=== PATIENT | female | born 1970 | race Caucasian/White ===

== ENCOUNTER 2016-05-09 08:45 | Observation (INO) | payer BC, OTHER ==
[~2016-05-09] VITALS: Ht 170.2 cm; Wt 84.0 kg
[~2016-05-09 08:45] MED LIST: CLOP1TAB15 PO; LEVO1TAB35 PO; METO25TA3 PO; NITR-5 PO; NITR0.4S UT; PRT/20 PO; ROSU40TA PO
[2016-05-09] MEDS ORDERED: NITROGLYCERIN OINT 2% 1GM PACKET EXT ONE (09:15)
[2016-05-09 09:16] LABS: HEMATOCRIT 43.7 % (37-47); MEAN CELL VOLUME 95.8 fL (80-100); MEAN CORPUSCULAR HEMOGLOBIN 32.7 pg (25-34); MEAN CORPUSCULAR HGB CONC 34.1 g/dl (32-36); MEAN PLATELET VOLUME 10.5 fL (7.4-10.4); PLATELET COUNT 380 K/uL (130-400); RED BLOOD COUNT 4.56 M/uL (4.2-5.4); WHITE BLOOD COUNT 10.06 K/uL (4.8-10.8)
[2016-05-09 09:25] LABS: INR 0.9 (0.9-1.1); PARTIAL THROMBOPLASTIN RATIO 1.1; PROTHROMBIN TIME (PATIENT) 10.1 SECONDS (9.0-12.0)
--- NOTE | 2016-05-09 09:30 | DIAGNOSTIC IMAGING REPORT ---
SINGLE VIEW CHEST CLINICAL HISTORY: Atypical chest pain. FINDINGS: An AP, portable, upright chest radiograph is compared to study dated 02/02/2016. The examination is degraded by portable technique and patient rotation. The patient is status post midline sternotomy. The heart is mildly enlarged and there is atherosclerotic calcification of the thoracic aorta. Emphysema and chronic interstitial thickening is similar to previous. Biapical scarring is noted, right greater than left. No airspace consolidation, large pleural effusion, or pneumothorax is seen. The skeletal structures are osteopenic. There are healed right-sided rib fractures. IMPRESSION: Mild cardiomegaly, emphysema, and chronic parenchymal changes as above. There is no acute cardiopulmonary abnormality. Electronically signed by: Bill Lombardo M.D. 05/09/2016 9:29 AM Dictated Date/Time: 05/09/2016 9:27 AM
[2016-05-09 09:32] LABS: CALCIUM 8.9 mg/dl (8.5-10.1); CREATININE 0.82 mg/dl (0.60-1.20); POTASSIUM 4.2 mmol/L (3.5-5.1)
[2016-05-09] MEDS ORDERED: ASPI81TA28 PO (09:33)
[2016-05-09 09:34] LABS: BASO ABS # 0.09 K/uL (0-0.2); BASOPHIL % 0.9 %; COMPLETE YES; EOSINOPHIL % 0.9 %; LYMPH ABS # 2.72 K/uL (1.2-3.4); MYELOCYTE % 0.9 %
--- NOTE | 2016-05-09 12:01 | EMERGENCY ROOM VISIT NOTE ---
History Report prepared by Minna: Ernesto Renee Under the Supervision of: Dr. Efrain Alcala M.D. First contact with patient: 09:00 Chief Complaint: CHEST PAIN Stated Complaint: CHEST PAINS X 2 DAYS History of Present Illness The patient is a 45 year old female who presents to the Emergency Room with complaints of intermittent chest pain that began yesterday, one day prior to arrival. The patient describes her pain as a "pressure" and states that it is localized in her left chest and under her left breast. She is currently experiencing the pain under the left breast. Her chest pain is worsened with exertion, and presents with associated shortness of breath. When the patient's symptoms began yesterday she became dizzy and nauseated so she took one nitroglycerin. This helped slightly, and she additionally took 3 Aspirin tablets and laid down. This improved her pain, but she states she could still feel her "heart beating out of her chest" and she was also experiencing chills. The patient denies becoming diaphoretic at any point yesterday or today. The patient is a current smoker and has a history of stent placement in 2008. Source of History: patient Onset: One day MANAGER CHANGE Position: chest (left) Quality: pressure Modifying Factors (Worsening): exertion Modifying Factors (Relieving): other (Nitro and Aspirin) Associated Symptoms: + SOB, + chills, + nausea, No diaphoresis Review of Systems See HPI for pertinent positives & negatives. A total of 10 systems reviewed and were otherwise negative. Past Medical & Surgical Medical Problems: (1) Asthma (2) Bronchitis (3) Heart disease Surgical Problems: (1) Hx of CABG Family History No pertinent family history Social History Smoking Status: Current Every Day Smoker Marital Status: Housing Status: lives with family Current/Historical Medications Scheduled Aspirin (Aspirin Ec), 81 MG PO DAILY Clopidogrel (Plavix), 75 MG PO DAILY Metoprolol Succ (Toprol Xl) (Toprol-Xl), 25 MG PO DAILY Pantoprazole (Protonix), 20 MG PO DAILY Rosuvastatin Calcium (Crestor), 40 MG PO DAILY Scheduled PRN Nitroglycerin (Nitrostat), 0.4 MG UT UD PRN for Chest Pain Allergies Coded Allergies: Penicillins (Verified Allergy, Unknown, HIVES, 05/09/16) Physical Exam Vital Signs Date Time Temp Pulse Resp B/P Pulse Ox O2 Delivery O2 Flow Rate FiO2 2/14/17 10:50 59 18 152/84 100 Room Air 05/09/16 09:51 56 17 139/85 97 Room Air 05/09/16 09:21 64 05/09/16 09:20 99 Room Air 05/09/16 09:18 99 Room Air 05/09/16 08:49 36.9 66 20 162/84 99 Room Air Physical Exam Constitutional: Vital signs reviewed. Eyes: Pupils are equal round reactive to light. Conjunctiva are noninjected. ENT: Pharynx is clear without erythema or exudate. Mucous membranes are moist. Neck supple without meningeal signs. Respiratory: Clear to auscultation bilaterally. Breath sounds are equal bilaterally. Cardiovascular: Regular rate and rhythm. No rubs or gallops. GI: Soft, nondistended and nontender. Bowel sounds are present. Musculoskeletal: No peripheral edema. No lower extremity tenderness. Integumentary: No cyanosis. Neurological: The patient is awake and alert. No focal deficits. Psychiatric: Normal affect. Medical Decision & Procedures ER Provider Diagnostic Interpretation: Other radiology results as stated below per my review and the radiologist's interpretation: SINGLE VIEW CHEST CLINICAL HISTORY: Atypical chest pain. FINDINGS: An AP, portable, upright chest radiograph is compared to study dated 02/02/2016. The examination is degraded by portable technique and patient rotation. The patient is status post midline sternotomy. The heart is mildly enlarged and there is atherosclerotic calcification of the thoracic aorta. Emphysema and chronic interstitial thickening is similar to previous. Biapical scarring is noted, right greater than left. No airspace consolidation, large pleural effusion, or pneumothorax is seen. The skeletal structures are osteopenic. There are healed right-sided rib fractures. IMPRESSION: Mild cardiomegaly, emphysema, and chronic parenchymal changes as above. There is no acute cardiopulmonary abnormality. Electronically signed by: Bill Lombardo M.D. 05/09/2016 9:29 AM Dictated Date/Time: 05/09/2016 9:27 AM Laboratory Results 05/09/16 09:05 Red Blood Count 4.56, Mean Corpuscular Volume 95.8, Mean Corpuscular Hemoglobin 32.7, Mean Corpuscular Hemoglobin Concent 34.1, Mean Platelet Volume 10.5 05/09/16 09:05 Test 05/09/16 09:05 05/09/16 09:18 White Blood Count 10.06 K/uL (4.8-10.8) Red Blood Count 4.56 M/uL (4.2-5.4) Hemoglobin 14.9 g/dL (12.0-16.0) Hematocrit 43.7 % (37-47) Mean Corpuscular Volume 95.8 fL (80-100) Mean Corpuscular Hemoglobin 32.7 pg (25-34) Mean Corpuscular Hemoglobin Concent 34.1 g/dl (32-36) Platelet Count 380 K/uL (130-400) Mean Platelet Volume 10.5 fL (7.4-10.4) RDW Standard Deviation 45.6 fL (36.4-46.3) RDW Coefficient of Variation 13.1 % (11.5-14.5) Neutrophils % (Manual) 64.0 % Lymphocytes % (Manual) 27.0 % Monocytes % (Manual) 6.3 % Eosinophils % (Manual) 0.9 % Basophils % (Manual) 0.9 % Myelocytes % 0.9 % Neutrophils # (Manual) 6.44 K/uL (1.4-6.5) Total Absolute Neutrophils 6.44 K/uL (1.4-6.5) Lymphocytes # (Manual) 2.72 K/uL (1.2-3.4) Total Absolute Lymphocytes 2.72 K/uL (1.2-3.4) Monocytes # (Manual) 0.63 K/uL (0.11-0.59) Eosinophils # (Manual) 0.09 K/uL (0-0.5) Basophils # (Manual) 0.09 K/uL (0-0.2) Myelocytes # 0.09 K/uL (0-0) Red Blood Cell Morphology Unremarkable Prothrombin Time 10.1 SECONDS (9.0-12.0) Prothromb Time International Ratio 0.9 (0.9-1.1) Activated Partial Thromboplast Time 27.6 SECONDS (21.0-31.0) Partial Thromboplastin Ratio 1.1 Anion Gap 9.0 mmol/L (3-11) Est Creatinine Clear Calc Drug Dose 96.5 ml/min Estimated GFR () 100.2 Estimated GFR (Non- 86.4 BUN/Creatinine Ratio 15.0 (10-20) Calcium Level 8.9 mg/dl (8.5-10.1) Bedside Troponin I 0.020 ng/ml (0-0.045) Laboratory results as reviewed by me. ECG Indication: chest pain, SOB/dyspnea Rate (beats per minute): 66 Rhythm: sinus rhythm Findings: PVC, other (Q-waves in V1 and V2) ED Course 0901: The patient was evaluated in room B2B. A complete history and physical exam was performed. 0915: Ordered Nitroglycerin 0.5 inch EXT. 0918: I checked on the patient at this time. She is refusing the nitroglycerin because it gives her a bad headache. She claims her chest pain is completely gone at this time. 0937: I put out a page for the [facility] at this time. 0943: I discussed the case with Dr.Landry- [facility] Hospitalist at this time, she will evaluate the patient for further treatment. 1001: I reevaluated the patient at this time, we are waiting for the hospitalist to evaluate. 1029: The wrong hospitalist was paged initially. The patient will be observed by the [facility] Hospitalist. I discussed the case with Dr.Lin Torsten SHELLEY Hospitalist at this time, she will evaluate the patient for further treatment. Medical Decision This is a 45-year-old female who presents with chest pain. Differential diagnosis includes unstable angina, [place], GERD, pleurisy, pericarditis. I did perform a limited focused review of portions of the patient's old chart on the electronic medical record. The patient has had no recent pertinent visits to this hospital. I did evaluate the patient as noted above. The patient has a prior history of cardiac stent. She currently smokes as well. She is presenting with exertional chest pain which she describes as a pressure. Initially I ordered nitroglycerin paste but she refused it. On reassessment she states that her chest pain is gone. IV access was established. The patient was placed on a continuous playground monitor. I did order and personally review the patient's 12- lead EKG and chest x-ray as described above. She has nonspecific findings on her twelve-lead EKG. I did order and review the patient's blood work as noted in the electronic medical record. Troponin is negative. I did discuss the test results with the patient. I did recommend hospitalization for repeat cardiac enzymes and further evaluation. I did discuss the case with the hospitalist and human services case manager. Consults Time Called: 0928 Consulting Physician: Dr. Margaret SHELLEY Hospitalist Returned Call: [phone] I discussed the case with Dr.Lin Torsten SHELLEY Hospitalist at this time, she will evaluate the patient for further treatment. Impression Primary Impression: Left sided chest pain Scribe Attestation The scribe's documentation has been prepared under my direct and personally reviewed by me in its entirety. I confirm that the note above accurately reflects all work, treatment, procedures, and medical decision making performed by me. Departure Information Dispostion Being Evaluated By Hospitalist Referrals Natalie Feliz C.R.N.P. (PCP) Patient Instructions My [facility]
[2016-05-09] MEDS ORDERED: IV FLUIDS COMPLETED PRN (12:15)
[2016-05-09] MEDS ORDERED: ACETAMINOPHEN 325 MG TAB PO PRN (12:30)
[2016-05-09] MEDS ORDERED: NITROGLYCERIN 0.4 MG SL PER TAB CHARGE SL PRN (12:30)
--- NOTE | 2016-05-09 12:31 | History and Physical ---
History & Physical Date & Time of Service: May 09, 2016 at 12:06 Chief Complaint: Chest Pains X 2 Days Primary Care Physician: Natalie Feliz C.R.N.P. History of Present Illness Source: patient Ms Hicks is a 45 yo F with significant cardiac hx including an acute ND at the age of 38 requiring a CABG for 3 vessels in 09/2008, h/o of CHAO placement same year 02/2009 in the SVG to PDA, active heavy smoker, HTN, and emphysema who presents with a left-sided chest pain. Chest pain is described as heaviness and pressure-like when it started radiates to left axillary area and underneath her left breast, 10/10 yesterday, sudden, occurred while walking but lasted only a few seconds. Chest pain became intermittent and relieved with nitro and some rest and further alleviated by 3 tabs of ASA. Chest pain is now "crampy" in nature, intermittent, 3-4/10 and now in the left axillary line lateral to her breast. Yesterday, it was associated with lightheaded and nausea, but those have not recurred today. She reports her initial ND presented atypically, presenting as reflux-like, which prompted her ER visit today. Her last cardiac stress test was 2 years ago in [place], [place] and reportedly normal. No h/o CHF and no recent echo done. She does follow with Dr. Harrington. She otherwise does not have SOB, no n/v at present, no abdominal pain or urinary symptoms reported. Past Medical/Surgical History PMH: - CAD s/p CABG in 09/2008, s/p DE stent to SVG to PDA in 02/2009 - HTN - active smoker - asthma - emphysema PSH - CABG - b/l bunionectomies FHx - Mother: heart disease , CABG, lung ca, smoker - Father: heart disease with CABG - Maternal GM: ND, lung ca Allergies: PCN (hives) Family History No pertinent family history Social History Smoking Status: Current Every Day Smoker Alcohol Use: occasionally Drug Use: cocaine (quit 2006) Marital Status: Occupational Status: employed Allergies Coded Allergies: Penicillins (Verified Allergy, Unknown, HIVES, 05/09/16) Home Medications Scheduled Aspirin (Aspirin Ec), 81 MG PO DAILY Clopidogrel (Plavix), 75 MG PO DAILY Metoprolol Succ (Toprol Xl) (Toprol-Xl), 25 MG PO DAILY Pantoprazole (Protonix), 20 MG PO DAILY Rosuvastatin Calcium (Crestor), 40 MG PO DAILY Scheduled PRN Nitroglycerin (Nitrostat), 0.4 MG UT UD PRN for Chest Pain Review of Systems ROS as per HPI. Rest of ROS negative. Physical Exam Vital Signs Date Time Temp Pulse Resp B/P Pulse Ox O2 Delivery O2 Flow Rate FiO2 05/09/16 10:50 59 18 152/84 100 Room Air 05/09/16 09:51 56 17 139/85 97 Room Air 05/09/16 09:21 64 05/09/16 09:20 99 Room Air 05/09/16 09:18 99 Room Air 05/09/16 08:49 36.9 66 20 162/84 99 Room Air NAD, AOx3, appropriate, coherent, fluent speech EOMI, PERRL, anicteric sclerae S1 S2 RRR, no murmurs appreciated CTAB no w/r/r/ Abd soft, nt/nd +BS no CVA tenderness no LE edema CN 2-12 grossly intact without focal deficits or facial drooping Diagnostics Laboratory Results Results Past 24 Hours Test 05/09/16 09:05 05/09/16 09:18 Range/Units White Blood Count 10.06 4.8-10.8 K/uL Red Blood Count 4.56 4.2-5.4 M/uL Hemoglobin 14.9 12.0-16.0 g/dL Hematocrit 43.7 37-47 % Mean Corpuscular Volume 95.8 80-100 fL Mean Corpuscular Hemoglobin 32.7 25-34 pg Mean Corpuscular Hemoglobin Concent 34.1 32-36 g/dl Platelet Count 380 130-400 K/uL Mean Platelet Volume 10.5 7.4-10.4 fL RDW Standard Deviation 45.6 36.4-46.3 fL RDW Coefficient of Variation 13.1 11.5-14.5 % Neutrophils % (Manual) 64.0 % Lymphocytes % (Manual) 27.0 % Monocytes % (Manual) 6.3 % Eosinophils % (Manual) 0.9 % Basophils % (Manual) 0.9 % Myelocytes % 0.9 % Neutrophils # (Manual) 6.44 1.4-6.5 K/uL Total Absolute Neutrophils 6.44 1.4-6.5 K/uL Lymphocytes # (Manual) 2.72 1.2-3.4 K/uL Total Absolute Lymphocytes 2.72 1.2-3.4 K/uL Monocytes # (Manual) 0.63 0.11-0.59 K/uL Eosinophils # (Manual) 0.09 0-0.5 K/uL Basophils # (Manual) 0.09 0-0.2 K/uL Myelocytes # 0.09 0-0 K/uL Red Blood Cell Morphology Unremarkable Prothrombin Time 10.1 9.0-12.0 SECONDS Prothromb Time International Ratio 0.9 0.9-1.1 Activated Partial Thromboplast Time 27.6 21.0-31.0 SECONDS Partial Thromboplastin Ratio 1.1 Sodium Level 142 136-145 mmol/L Potassium Level 4.2 3.5-5.1 mmol/L Chloride Level 108 98-107 mmol/L Carbon Dioxide Level 25 21-32 mmol/L Anion Gap 9.0 3-11 mmol/L Blood Urea Nitrogen 12 7-18 mg/dl Creatinine 0.82 0.60-1.20 mg/dl Est Creatinine Clear Calc Drug Dose 96.5 ml/min Estimated GFR () 100.2 Estimated GFR (Non- 86.4 BUN/Creatinine Ratio 15.0 10-20 Random Glucose 81 70-99 mg/dl Calcium Level 8.9 8.5-10.1 mg/dl Bedside Troponin I 0.020 0-0.045 ng/ml Diagnostic Radiology SINGLE VIEW CHEST CLINICAL HISTORY: Atypical chest pain. FINDINGS: An AP, portable, upright chest radiograph is compared to study dated 02/02/2016. The examination is degraded by portable technique and patient rotation. The patient is status post midline sternotomy. The heart is mildly enlarged and there is atherosclerotic calcification of the thoracic aorta. Emphysema and chronic interstitial thickening is similar to previous. Biapical scarring is noted, right greater than left. No airspace consolidation, large pleural effusion, or pneumothorax is seen. The skeletal structures are osteopenic. There are healed right-sided rib fractures. IMPRESSION: Mild cardiomegaly, emphysema, and chronic parenchymal changes as above. There is no acute cardiopulmonary abnormality. Electronically signed by: Bill Lombardo M.D. 05/09/2016 9:29 AM Dictated Date/Time: 05/09/2016 9:27 AM other (no PASTOR or ST depressions noted, Occ pvc) Impression Assessment and Plan 1. Atypical chest pain - significant h/o CAD, CABG, heavy smoking - will monitor under tele - serial cardiac enzymes - cardiology consult 2. HTN - BP on the high-side - has not taken her toprol today 3. CAD s/p CABG, s/p CHAO - cont asa/plavix - cont metoprolol succ - cont statin 4. Smoking cessation - counselled heavily on smoking cessation - has been using Chantix, will hold for now and will not start on nicotine patch (patient did not tolerate in past) - verbalized understanding 5. dvt ppx with hsq VTE Prophylaxis VTE Risk Assessment Done? Y/N: Yes Risk Level: Low
[2016-05-09 13:26] VITALS: BP 138/81; PULSE 69; TEMP 36.5; O2SAT 97; Ht 170.2 cm; Wt 84.0 kg
[2016-05-09] MEDS ORDERED: INFLUENZA ADMINISTRATION CHARGE ONE (14:00)
[2016-05-09] MEDS ORDERED: INFLUENZA VIRUS QUAD VACCINE 0.5 ML SYR IM. ONE (14:00)
[2016-05-09] MEDS ORDERED: CLOPIDOGREL BISULFATE 75 MG TAB PO ONE (14:30)
[2016-05-09] MEDS ORDERED: METOPROLOL SUCC 25MG EXT REL TAB PO ONE (14:30)
[2016-05-09 15:06] VITALS: BP 124/74; PULSE 59; TEMP 36.6; O2SAT 96
[2016-05-09] MEDS: HEPARIN SOD 5000 UNIT/0.5 ML CARP SQ SCH ×2 (17:34→21:59)
--- NOTE | 2016-05-09 19:37 | CARDIOLOGY CONSULTATION ---
DATE OF CONSULTATION: 05/09/2016 CONSULTATION FOR: [facility]. REASON FOR CONSULTATION: Chest pain. HISTORY OF PRESENT ILLNESS: The patient is a 45-year-old female who developed early heart disease at age 38 and underwent coronary artery bypass surgery in September of 2008. She received a MARTIN to the LAD and a saphenous vein graft to the right coronary artery. In February of 2009, she had recurrence chest pain and underwent a repeat cardiac catheterization and drug-eluting stent was placed in the saphenous vein graft to the PDA. She has a longstanding history of cigarette smoking as well as a strong family history of heart disease. She continues to smoke up until today. She is usually followed by Dr. Harrington who last saw her in March of 2016. At that time, he recommended that she undergo an exercise stress echocardiogram. The patient did not want to proceed with that study and felt that she might want to do that in the early spring. The patient was at work today. She developed some left-sided chest discomfort and felt that she should come to the hospital where she has been admitted. Her cardiac markers have been negative x2. Her EKG shows no acute changes. It reveals sinus rhythm with single PVC and poor R-wave progression across the precordium. ALLERGIES: TO PENICILLIN. PAST MEDICAL HISTORY: As described above, the patient has early arteriosclerotic vascular disease and underwent coronary artery bypass surgery at age 38. She also received a drug-eluting stent to the saphenous vein graft to the right coronary artery that same year. Her early atherosclerosis may be family related, but she does have a long history of tobacco abuse as well as crack cocaine abuse. She has been treated for dyslipidemia and hypertension. SOCIAL HISTORY: She continues to smoke. She is and employed. FAMILY MEDICAL HISTORY: Significant for mother with previous coronary artery bypass surgery and a father with previous bypass surgery. REVIEW OF SYSTEMS: A 10-point review of systems is negative except for the history of chief complaint. PHYSICAL EXAMINATION: GENERAL: She is alert and oriented, in no acute distress. VITAL SIGNS: Blood pressure is 130/85, pulse is regular at 56. She is afebrile. HEENT: She is normocephalic. Pupils are equal and reactive to light. Extraocular muscles are intact bilaterally. NECK: The neck veins are flat. Carotids have good upstrokes bilaterally without bruits. Thyroid is nonpalpable. RESPIRATORY: Breath sounds equal bilaterally and clear to auscultation. CARDIOVASCULAR: Heart has a regular rhythm. Normal S1, S2. No S3, S4. No cardiac rubs or murmurs. GASTROINTESTINAL: Abdomen is soft, nontender without organomegaly. EXTREMITIES: Free of edema, digit clubbing, or cyanosis. NEUROLOGIC: Grossly intact. SKIN: Warm to touch. LYMPH NODES: Negative to palpation. LABORATORY DATA: As per the history of chief complaint. IMPRESSION: 1. Chest pain. 2. History of early arteriosclerotic vascular disease. 3. Status post coronary artery bypass surgery. 4. Drug-eluting stent within the saphenous vein graft to the right coronary artery. 5. Hypertension. 6. Dyslipidemia. 7. Cigarette smoking. RECOMMENDATIONS: The patient has had 2 negative cardiac markers. I believe that we can schedule an exercise stress echocardiogram for her. If that study is negative, then she can be discharged home. If this study is abnormal, then we will proceed with repeat cardiac catheterization. CARMEL
[2016-05-09 19:45] VITALS: BP 162/81; PULSE 59; TEMP 36.4; O2SAT 97
[2016-05-09 20:00] VITALS: O2SAT 96
[2016-05-09 23:55] VITALS: BP 113/68; PULSE 62; TEMP 36.7; O2SAT 96
[2016-05-10] VITALS: O2SAT 96
[2016-05-10 04:00] VITALS: BP 102/66; PULSE 58; TEMP 36.6; O2SAT 95
[2016-05-10 06:21] LABS: BASO % 0.6 %; BASO ABS # 0.05 K/uL (0-0.2); COMPLETE YES; EOS % 1.8 %; HEMATOCRIT 43.2 % (37-47); IG% 0.7 %; LYMPH % 28.4 %; LYMPH ABS # 2.31 K/uL (1.2-3.4); MEAN CELL VOLUME 95.8 fL (80-100); MEAN CORPUSCULAR HEMOGLOBIN 32.6 pg (25-34); MEAN PLATELET VOLUME 10.7 fL (7.4-10.4); MONO % 5.4 %; NEUT % 63.1 %; PLATELET COUNT 339 K/uL (130-400); RED BLOOD COUNT 4.51 M/uL (4.2-5.4); WHITE BLOOD COUNT 8.12 K/uL (4.8-10.8)
[2016-05-10] MEDS: HEPARIN SOD 5000 UNIT/0.5 ML CARP SQ SCH (06:41)
[2016-05-10 07:10] LABS: BUN/CREATININE RATIO 18.1 (10-20); CALCIUM 8.9 mg/dl (8.5-10.1); CREATININE 0.86 mg/dl (0.60-1.20); POTASSIUM 4.2 mmol/L (3.5-5.1)
[2016-05-10 08:00] VITALS: BP 120/81; PULSE 67; TEMP 36.6; O2SAT 95
[2016-05-10] MEDS ORDERED: CLOPIDOGREL BISULFATE 75 MG TAB PO SCH (09:00)
[2016-05-10] MEDS ORDERED: PANTOprazole SOD 40 MG TAB PO SCH (09:00)
[2016-05-10] MEDS ORDERED: METOPROLOL SUCC 25MG EXT REL TAB PO SCH (09:00)
[2016-05-10] MEDS ORDERED: ASPIRIN 81 MG ECTAB PO SCH (09:00)
[2016-05-10] MEDS ORDERED: ROSUVASTATIN CALCIUM 20 MG TAB PO SCH (09:00)
--- NOTE | 2016-05-10 11:11 | Cardiology Follow-Up ---
Subjective General Date of Service: May 10, 2016. Chief Complaint: follow up chest pain Pt evaluation today including: conversation w/ patient, physical exam History of Present Illness The patient is a 45 year old female seen in follow up prior to/ during/ post stress echo. No chest pain overnight. Allergies Coded Allergies: Penicillins (Verified Allergy, Unknown, HIVES, 05/09/16) Social History Smoking Status: Current Every Day Smoker Hx Tobacco Use In Past Year?: Yes (cigarettes 1/2 - 3/4 pack) Hx Alcohol Use - Type And Amou: Yes (beer 3 per week) Hx Substance Use - Type And Am: No Problem List Medical Problems: (1) Left sided chest pain Status: Acute (2) Pneumonia involving left lung Status: Acute Physical Exam Vital Signs Last Vital Signs Documentation Date Time Temp Pulse Resp B/P Pulse Ox O2 Delivery O2 Flow Rate FiO2 05/10/16 08:00 95 Room Air 05/10/16 08:00 36.6 67 18 120/81 Physical Exam Constitutional: General Apperance: heathly-appearing Level of Distress: NAD Neck: supple Lungs: Auscultation: no wheezing, no rales/crackles, no rhonchi Cardiovascular: Heart Auscultation: RRR, no murmurs, no rubs Musculoskeletal: normal Extremities: no edema Neurologic: Gait & Station: normal gait, pertinent finding (no focal deficits ) Assessment and Plan Assessment and Plan Data: Patient with non ischemic exercise stress echo, supervised by the undersigned . Presenting symptoms not reproduced. Impression: Chest pain. -Perhaps vasospasm related to being out in cold can be implicated, or perhaps recent symptoms are related to her chronic back pain. -No angina induced having completed 6 minutes on Enrike protocol/ achieved target HR. Plan: Continue current medications. Follow up with Dr Harrington in 2-4 weeks as outpt. Trey Patterson DO Laboratory Results Last 24 Hours Test 05/09/16 12:18 05/09/16 18:58 05/10/16 02:21 05/10/16 05:34 Creatine Kinase MB Ratio Troponin I < 0.015 ng/ml < 0.015 ng/ml White Blood Count 8.12 K/uL Red Blood Count 4.51 M/uL Hemoglobin 14.7 g/dL Hematocrit 43.2 % Mean Corpuscular Volume 95.8 fL Mean Corpuscular Hemoglobin 32.6 pg Mean Corpuscular Hemoglobin Concent 34.0 g/dl Platelet Count 339 K/uL Mean Platelet Volume 10.7 fL Neutrophils (%) (Auto) 63.1 % Lymphocytes (%) (Auto) 28.4 % Monocytes (%) (Auto) 5.4 % Eosinophils (%) (Auto) 1.8 % Basophils (%) (Auto) 0.6 % Neutrophils # (Auto) 5.11 K/uL Lymphocytes # (Auto) 2.31 K/uL Monocytes # (Auto) 0.44 K/uL Eosinophils # (Auto) 0.15 K/uL Basophils # (Auto) 0.05 K/uL RDW Standard Deviation 45.9 fL RDW Coefficient of Variation 13.0 % Immature Granulocyte % (Auto) 0.7 % Immature Granulocyte # (Auto) 0.06 K/uL Sodium Level 143 mmol/L Potassium Level 4.2 mmol/L Chloride Level 110 mmol/L Carbon Dioxide Level 23 mmol/L Anion Gap 10.0 mmol/L Blood Urea Nitrogen 16 mg/dl Creatinine 0.86 mg/dl Est Creatinine Clear Calc Drug Dose 92.0 ml/min Estimated GFR () 94.6 Estimated GFR (Non- 81.6 BUN/Creatinine Ratio 18.1 Random Glucose 91 mg/dl Calcium Level 8.9 mg/dl
[2016-05-10 11:30] VITALS: BP 150/97; PULSE 70; TEMP 36.3; O2SAT 95
--- NOTE | 2016-05-10 11:35 | Discharge Instructions ---
Discharge Instructions Admission Reason for Admission: Left Sided Chest Pain Discharge Discharge Diagnosis / Problem: chest pain Discharge Goals Goal(s): Improve disease control Activity Recommendations Activity Limitations: resume your previous activity . Current Hospital Diet Patient's current hospital diet: AHA Diet (Heart Healthy) Discharge Diet Recommended Diet: AHA Diet (Heart Healthy) Pending Studies Studies pending at discharge: no Laboratory Results Lipid Panel Test 03/16/16 08:48 Range/Units Triglycerides Level 114 0-150 mg/dl Cholesterol Level 131 0-200 mg/dl HDL Cholesterol 68 mg/dl Cholesterol/HDL Ratio 1.9 LDL Cholesterol, Calculated 40 mg/dl Medical Emergencies . Who to Call and When: Medical Emergencies: If at any time you feel your situation is an emergency, please call 911 immediately. . Non-Emergent Contact Non-Emergency issues call your: Primary Care Provider, Pipe Finishing Supervisor . . "Provider Documentation" section prepared by Debi Garcia. VTE Core Measure Inpt VTE Proph given/why not?: Unfractionated heparin SQ
--- NOTE | 2016-05-10 11:38 | Discharge Summary ---
Discharge Summary Admission Date: May 09, 2016 at 12:06 Discharge Date: May 10, 2016 Discharge Disposition: Home Principal Diagnosis: chest pain Procedures: nterpretation Summary * Conclusions -- * STRESS STUDY: * Normal exercise stress echocardiogram. * No echocardiographic or EKG evidence of myocardial ischemia having achieved heart rate adequate for diagnostic purposes. * Presenting symptoms of chest pain were not reproduced with exercise. * RESTING STUDY: * No significant valvular heart disease. Procedure Details * ECHOEX, CPT #85901 * ECHO COLOR FLOW, CPT #75876 * ECHO DOPPLER, CPT #87520 * A contrast injection of Definity was performed to improve assessment of LV function. * Contrast was injected into an intravenous site in the left arm. * One vial of Definity ultrasound contrast was diluted in normal saline to a total volume of 10 ml. A total of '4' ml of solution was administered during imaging. * Lot # [id number] of Definity utilized for procedure. * Expiration date 1 MAY 13. * The attending nurse who injected the contrast agent was MILTON MCKEON CPL , RN. Left Ventricle * The left ventricle is normal in size. * There is normal left ventricular wall thickness. * Ejection Fraction = 55-60%. * Left ventricular systolic function is normal. * Resting wall motion: Normal. Stress wall motion: Appropriate increase in Left ventricular systolic function and decrease in cavity size. No stress induced segmental wall motion abnormalities. Right Ventricle * The right ventricle is normal in size and function. Atria * The left atrial size is normal. * Right atrial size is normal. * No ASD detected; PFO is not assessed. Mitral Valve * The mitral valve is normal. * There is no mitral valve stenosis. * There is trace mitral regurgitation. Tricuspid Valve * The tricuspid valve is normal. * There is no tricuspid stenosis. * There is trace tricuspid regurgitation. Aortic Valve * The aortic valve is trileaflet. * No hemodynamically significant valvular aortic stenosis. * No aortic regurgitation is present. Pulmonic Valve * The pulmonic valve is not well visualized. Great Vessels * The aortic root is normal size. Pericardium * There is no pericardial effusion. Stress Parameters * The resting EKG was normal. * The stress EKG resonse was negative for ischemia. No arrhythmias were noted. * The stress portion of this study was personally supervised by the undersigned interpreting physician. * Rest heart rate was '55' BPM. * Rest blood pressure was '114/69' * Maximum heart rate achieved was 155 bpm. * Maximum heart rate was 88 % of maximum age-predicted heart rate. * Maximum blood pressure was '213/99' * Total exercise time was '06:01' * Maximum treadmill speed was '2.80' miles per hour. * Maximum treadmill elevation was '12.70'% grade. * Maximum exercise MET level achieved was '7.00' METS Left Ventricular Diastolic Function * Grade I diastolic dysfunction, (abnormal relaxation pattern). MMode 2D Measurements and Calculations IVSd 1.0 cm IVSs 1.6 cm LVIDd 4.3 cm LVIDs 3.1 cm LVPWd 1.0 cm LVPWs 1.2 cm IVS/LVPW 0.97 FS 28.7 % EDV(Teich) 84.6 ml ESV(Teich) 37.6 ml EF(Teich) 55.5 % EDV(cubed) 81.4 ml ESV(cubed) 29.5 ml EF(cubed) 63.8 % % IVS thick 58.1 % % LVPW thick 17.4 % LV mass(C)d 151.6 grams LV mass(C)dI 77.5 grams/m\\S\\2 LV mass(C)s 150.3 grams LV mass(C)sI 76.8 grams/m\\S\\2 SV(Teich) 47.0 ml SI(Teich) 24.0 ml/m\\S\\2 SV(cubed) 51.9 ml SI(cubed) 26.5 ml/m\\S\\2 Ao root diam 3.7 cm Ao root area 10.6 cm\\S\\2 ACS 2.0 cm LA dimension 3.7 cm LA/Ao 1.0 LVOT diam 2.0 cm LVOT area 3.2 cm\\S\\2 LVAd ap4 17.2 cm\\S\\2 LVLd ap4 5.7 cm EDV(MOD-sp4) 44.2 ml EDV(sp4-el) 44.0 ml LVAs ap4 9.8 cm\\S\\2 LVLs ap4 4.8 cm ESV(MOD-sp4) 17.5 ml ESV(sp4-el) 17.0 ml EF(MOD-sp4) 60.4 % EF(sp4-el) 61.4 % LVAd ap2 24.6 cm\\S\\2 LVLd ap2 6.8 cm EDV(MOD-sp2) 71.9 ml EDV(sp2-el) 75.2 ml LVAs ap2 14.2 cm\\S\\2 LVLs ap2 5.9 cm ESV(MOD-sp2) 30.5 ml ESV(sp2-el) 29.0 ml EF(MOD-sp2) 57.6 % EF(sp2-el) 61.4 % LVLd %diff 15.7 % EDV(MOD-bp) 60.8 ml LVLs %diff 17.7 % ESV(MOD-bp) 25.4 ml EF(MOD-bp) 58.2 % SV(MOD-sp4) 26.7 ml SI(MOD-sp4) 13.7 ml/m\\S\\2 SV(MOD-sp2) 41.4 ml SI(MOD-sp2) 21.1 ml/m\\S\\2 SV(MOD-bp) 35.4 ml SI(MOD-bp) 18.1 ml/m\\S\\2 SV(sp4-el) 27.0 ml SI(sp4-el) 13.8 ml/m\\S\\2 SV(sp2-el) 46.2 ml SI(sp2-el) 23.6 ml/m\\S\\2 Doppler Measurements and Calculations MV E max alvaro 81.9 cm/sec MV A max alvaro 55.8 cm/sec MV E/A 1.5 MV P1/2t max alvaro 97.9 cm/sec MV P1/2t 74.4 msec MVA(P1/2t) 3.0 cm\\S\\2 MV dec slope 385.5 cm/sec\\S\\2 Ao V2 max 118.3 cm/sec Ao max PG 5.6 mmHg Ao max PG (full) 2.2 mmHg KEVIN(V,A) 2.5 cm\\S\\2 KEVIN(V,D) 2.5 cm\\S\\2 LV V1 max PG 3.4 mmHg LV V1 max 92.3 cm/sec PA V2 max 95.0 cm/sec PA max PG 3.6 mmHg TR max alvaro 205.6 cm/sec Medication Reconciliation Continued Medications: Aspirin (Aspirin Ec) 81 Mg Tab 81 MG PO DAILY Clopidogrel (Plavix) 75 Mg Tab 75 MG PO DAILY Metoprolol Succ (Toprol Xl) (Toprol-Xl) 25 Mg Tabcr 25 MG PO DAILY Nitroglycerin (Nitrostat) 0.4 Mg Sub 0.4 MG UT UD PRN for Chest Pain Pantoprazole (Protonix) 20 Mg Tab 20 MG PO DAILY Rosuvastatin Calcium (Crestor) 40 Mg Tab 40 MG PO DAILY Referrals At Discharge Follow up Referrals: [facility] Referral - Within 3 Months with Efrain Harrington DO Hospital Course Ms Hicks is a 45 yo F with significant cardiac hx including an acute AR at the age of 38 requiring a CABG for 3 vessels in 09/2008, h/o of CHAO placement same year 02/2009 in the [facility] to [facility], active heavy smoker, HTN, and emphysema who presents with a left-sided chest pain. Chest pain is described as heaviness and pressure-like when it started radiates to left axillary area and underneath her left breast, 10/10 yesterday, sudden, occurred while walking but lasted only a few seconds. Chest pain became intermittent and relieved with nitro and some rest and further alleviated by 3 tabs of ASA. Chest pain is now "crampy" in nature, intermittent, 3-4/10 and now in the left axillary line lateral to her breast. Yesterday, it was associated with lightheaded and nausea, but those have not recurred today. She reports her initial AR presented atypically, presenting as reflux-like, which prompted her ER visit today. Her last cardiac stress test was 2 years ago in [place], [place] and reportedly normal. No h/o CHF and no recent echo done. She does follow with Dr. Harrington. She otherwise does not have SOB, no n/v at present, no abdominal pain or urinary symptoms reported. SHe was observed on tele overnight with negative cardiac enzymes. SHe was also evaluated by cardiology and had an exercise stress test done which was non- ischemic. CHest pain likely vasospasm vs musculoskeletal in nature. Will need to follow-up with Dr. Harrington in a 2-3 weeks. No further chest pain. No sob, no n/v. No new complaints. Vital Signs Date Time Temp Pulse Resp B/P Pulse Ox O2 Delivery O2 Flow Rate FiO2 05/10/16 11:30 36.3 70 16 150/97 95 Room Air NAD, AOx3 eomi, perrl s1 s2 rrr, no m/r/g ctab no w/r/r abd soft,nt/nd +BS no le edema no neuro deficits 1. Atypical chest pain 2. HTN - BP on the high-side - has not taken her toprol today 3. CAD s/p CABG, s/p CHAO - cont asa/plavix - cont metoprolol succ - cont statin 4. Smoking cessation - emphasized importance of smoking cessation again - advised to recognize triggers and develop strategies to avoid smoking 5. dvt ppx with hsq Total Time Spent: Greater than 30 minutes This includes examination of the patient, discharge planning, medication reconciliation, and communication with other providers. Discharge Instructions Please refer to the electronic Patient Visit Report (Discharge Instructions) for additional information.
[2016-05-10 12:00] VITALS: O2SAT 96
--- NOTE | 2016-05-10 12:41 | EXERCISE STRESS ECHO ---
*NOTICE TO RECEIVING [employer] This information is strictly Confidential and protected under [place] law. [place] law prohibits you from making any further disclosure of this information unless further disclosure is expressly permitted by the written consent of the person to whom it pertains or is authorized by law. A general authorization for the release of medical or other information is not sufficient for this purpose. Hospital accepts no responsibility if the information is made available to any other person, INCLUDING THE PATIENT. Interpretation Summary * Conclusions -- * STRESS STUDY: * Normal exercise stress echocardiogram. * No echocardiographic or EKG evidence of myocardial ischemia having achieved heart rate adequate for diagnostic purposes. * Presenting symptoms of chest pain were not reproduced with exercise. * RESTING STUDY: * No significant valvular heart disease. Procedure Details * ECHOEX, CPT #34276 * ECHO COLOR FLOW, CPT #[id number] * ECHO DOPPLER, CPT #09168 * A contrast injection of Definity was performed to improve assessment of LV function. * Contrast was injected into an intravenous site in the left arm. * One vial of Definity ultrasound contrast was diluted in normal saline to a total volume of 10 ml. A total of '4' ml of solution was administered during imaging. * Lot # [id number] of Definity utilized for procedure. * Expiration date 1 MAY 13. * The attending nurse who injected the contrast agent was MILTON MCKEON CPL, RN. Left Ventricle * The left ventricle is normal in size. * There is normal left ventricular wall thickness. * Ejection Fraction = 55-60%. * Left ventricular systolic function is normal. * Resting wall motion: Normal. Stress wall motion: Appropriate increase in Left ventricular systolic function and decrease in cavity size. No stress induced segmental wall motion abnormalities. Right Ventricle * The right ventricle is normal in size and function. Atria * The left atrial size is normal. * Right atrial size is normal. * No ASD detected; PFO is not assessed. Mitral Valve * The mitral valve is normal. * There is no mitral valve stenosis. * There is trace mitral regurgitation. Tricuspid Valve * The tricuspid valve is normal. * There is no tricuspid stenosis. * There is trace tricuspid regurgitation. Aortic Valve * The aortic valve is trileaflet. * No hemodynamically significant valvular aortic stenosis. * No aortic regurgitation is present. Pulmonic Valve * The pulmonic valve is not well visualized. Great Vessels * The aortic root is normal size. Pericardium * There is no pericardial effusion. Stress Parameters * The resting EKG was normal. * The stress EKG resonse was negative for ischemia. No arrhythmias were noted. * The stress portion of this study was personally supervised by the undersigned interpreting physician. * Rest heart rate was '55' BPM. * Rest blood pressure was '114/69' * Maximum heart rate achieved was 155 bpm. * Maximum heart rate was 88 % of maximum age-predicted heart rate. * Maximum blood pressure was '213/99' * Total exercise time was '06:01' * Maximum treadmill speed was '2.80' miles per hour. * Maximum treadmill elevation was '12.70'% grade. * Maximum exercise MET level achieved was '7.00' METS Left Ventricular Diastolic Function * Grade I diastolic dysfunction, (abnormal relaxation pattern). MMode 2D Measurements and Calculations IVSd 1.0 cm IVSs 1.6 cm LVIDd 4.3 cm LVIDs 3.1 cm LVPWd 1.0 cm LVPWs 1.2 cm IVS/LVPW 0.97 FS 28.7 % EDV(Teich) 84.6 ml ESV(Teich) 37.6 ml EF(Teich) 55.5 % EDV(cubed) 81.4 ml ESV(cubed) 29.5 ml EF(cubed) 63.8 % % IVS thick 58.1 % % LVPW thick 17.4 % LV mass(C)d 151.6 grams LV mass(C)dI 77.5 grams/m\S\2 LV mass(C)s 150.3 grams LV mass(C)sI 76.8 grams/m\S\2 SV(Teich) 47.0 ml SI(Teich) 24.0 ml/m\S\2 SV(cubed) 51.9 ml SI(cubed) 26.5 ml/m\S\2 Ao root diam 3.7 cm Ao root area 10.6 cm\S\2 ACS 2.0 cm LA dimension 3.7 cm LA/Ao 1.0 LVOT diam 2.0 cm LVOT area 3.2 cm\S\2 LVAd ap4 17.2 cm\S\2 LVLd ap4 5.7 cm EDV(MOD-sp4) 44.2 ml EDV(sp4-el) 44.0 ml LVAs ap4 9.8 cm\S\2 LVLs ap4 4.8 cm ESV(MOD-sp4) 17.5 ml ESV(sp4-el) 17.0 ml EF(MOD-sp4) 60.4 % EF(sp4-el) 61.4 % LVAd ap2 24.6 cm\S\2 LVLd ap2 6.8 cm EDV(MOD-sp2) 71.9 ml EDV(sp2-el) 75.2 ml LVAs ap2 14.2 cm\S\2 LVLs ap2 5.9 cm ESV(MOD-sp2) 30.5 ml ESV(sp2-el) 29.0 ml EF(MOD-sp2) 57.6 % EF(sp2-el) 61.4 % LVLd %diff 15.7 % EDV(MOD-bp) 60.8 ml LVLs %diff 17.7 % ESV(MOD-bp) 25.4 ml EF(MOD-bp) 58.2 % SV(MOD-sp4) 26.7 ml SI(MOD-sp4) 13.7 ml/m\S\2 SV(MOD-sp2) 41.4 ml SI(MOD-sp2) 21.1 ml/m\S\2 SV(MOD-bp) 35.4 ml SI(MOD-bp) 18.1 ml/m\S\2 SV(sp4-el) 27.0 ml SI(sp4-el) 13.8 ml/m\S\2 SV(sp2-el) 46.2 ml SI(sp2-el) 23.6 ml/m\S\2 Doppler Measurements and Calculations MV E max alvaro 81.9 cm/sec MV A max alvaro 55.8 cm/sec MV E/A 1.5 MV P1/2t max alvaro 97.9 cm/sec MV P1/2t 74.4 msec MVA(P1/2t) 3.0 cm\S\2 MV dec slope 385.5 cm/sec\S\2 Ao V2 max 118.3 cm/sec Ao max PG 5.6 mmHg Ao max PG (full) 2.2 mmHg KEVIN(V,A) 2.5 cm\S\2 KEVIN(V,D) 2.5 cm\S\2 LV V1 max PG 3.4 mmHg LV V1 max 92.3 cm/sec PA V2 max 95.0 cm/sec PA max PG 3.6 mmHg TR max alvaro 205.6 cm/sec
[2016-05-10 14:22] VITALS: BP 150/97; PULSE 70; TEMP 36.3; O2SAT 96
== END 2016-05-10 14:49 | disposition home or self-care (01) ==
LOC: ENRESERVDT → ENRESERVTM → C.EDB 08:47 → C.MED 12:06
PROVIDERS: ADMIT Internal Medicine; ATTEND Internal Medicine
DX: R07.89 Other chest pain (principal); I25.10 Atherosclerotic heart disease of native coronary artery without angina pectoris; F17.210 Nicotine dependence, cigarettes, uncomplicated; E78.5 Hyperlipidemia, unspecified; J43.9 Emphysema, unspecified; Z95.1 Presence of aortocoronary bypass graft; Z79.82 Long term (current) use of aspirin; Z88.0 Allergy status to penicillin; Z82.49 Family history of ischemic heart disease and other diseases of the circulatory system; Z80.1 Family history of malignant neoplasm of trachea, bronchus and lung; Z83.3 Family history of diabetes mellitus; J45.909 Unspecified asthma, uncomplicated; K21.9 Gastro-esophageal reflux disease without esophagitis; I10 Essential (primary) hypertension; I25.2 Old myocardial infarction

== ENCOUNTER → 2016-06-13 | Outpatient (CLI) | payer BC ==
[~2016-06-13] MED LIST changes: +ASPI81TA28 PO; -LEVO1TAB35 PO; -NITR-5 PO
--- NOTE | 2016-06-13 09:13 | DIAGNOSTIC IMAGING REPORT ---
LEFT KNEE 1 OR 2 VIEWS ROUTINE CLINICAL HISTORY: M25.561 Bilateral knee [id number] pain COMPARISON: None. DISCUSSION: The bones and joint spaces appear intact. There is no evidence of fracture, dislocation or bony disease. There is no evidence for soft tissue swelling. IMPRESSION: Negative study. Electronically signed by: Gonzalo Hernandez M.D. 06/13/2016 9:11 AM Dictated Date/Time: 06/13/2016 9:11 AM
--- NOTE | 2016-06-13 09:15 | DIAGNOSTIC IMAGING REPORT ---
PELVIS/BILATERAL HIP 2 VIEWS CLINICAL HISTORY: Bilateral hip and knee pain COMPARISON STUDY: No previous studies for comparison. FINDINGS: There is a left os acetabulum versus old ununited acetabular lip fracture. No acute fractures are visualized. There are no erosive or destructive changes. There is a bone island present within the left femoral neck. IMPRESSION: Left os acetabulum versus ununited acetabular lip fracture. No fractures of either proximal femur are visualized. No evidence of significant joint space narrowing Electronically signed by: Sadiq Avila M.D. 06/13/2016 9:14 AM Dictated Date/Time: 06/13/2016 9:12 AM
--- NOTE | 2016-06-13 09:16 | DIAGNOSTIC IMAGING REPORT ---
RIGHT KNEE 1 OR 2 VIEWS ROUTINE CLINICAL HISTORY: Right knee pain COMPARISON: None. DISCUSSION: No acute fractures are visualized. There are minor degenerative changes present. There is a tiny dorsal patellar spur. No destructive lesions are evident. IMPRESSION: Minor degenerative change. No fractures are visualized. Electronically signed by: Sadiq Avila M.D. 06/13/2016 9:15 AM Dictated Date/Time: 06/13/2016 9:14 AM
== END | disposition home or self-care (01) ==
LOC: C.RAD1850 08:50
PROVIDERS: ATTEND Nurse Practitioner Adult Health
DX: M25.561 Pain in right knee (principal); M25.562 Pain in left knee; M25.551 Pain in right hip; M25.552 Pain in left hip

== ENCOUNTER 2018-07-11 08:49 | Observation (INO) ==
--- NOTE | 2018-06-25 15:15 | Anesthesiology Consultation ---
Date of Service June 25, 2018 Assessment & Plan (1) Encounter for pre-operative examination: Preoperative cardiac risk assessment 06/21/2018: "Perioperative risk discussed with patient. She understands this risk and is willing to proceed with surgery as scheduled. No further cardiac testing or intervention would lower her risk at this time. Plavix may be held 5 days prior to procedure. Recommend continuing aspirin, beta-anabel, and statin uninterrupted perioperatively." Chart Review Chart Review: Acceptable Risk for Surgery and Patient seen in Pre Admission Testing Teaching & Discussion Instructed NPO after midnight before surgery, except medications with 15 cc of water. Medication instructions provided according to the PAT guidelines. History Surgery Operation Date: 07/11/18 08:25 Proposed Procedures p Cystoscopy, Excision of Pelvic Mass, Possible Urethral Repair, Possible Resection of Bladder, Possible Bladder Repair - Omid Espitia II, DO Height/Weight Height: 5 ft 7 in Weight: 85.2 kg Allergies Allergy/AdvReac Type Severity Reaction Status Date / Time Penicillins Allergy Unknown HIVES Verified 06/20/18 15:30 latex Allergy BREAKS OUT Verified 06/20/18 15:48 Medications Home Medications Medication Instructions Recorded Confirmed Last Taken aspirin 81 mg PO QPM 05/21/18 06/20/18 05/20/18 clopidogrel 75 mg PO QPM 05/21/18 06/20/18 05/20/18 metoprolol succinate 25 mg PO QPM 05/21/18 06/20/18 05/20/18 nitroglycerin [Nitrostat] 0.4 mg SUBLINGUAL UD PRN 05/21/18 06/20/18 Unknown pantoprazole 20 mg PO QPM 05/21/18 06/20/18 05/20/18 rosuvastatin 40 mg PO QPM 05/21/18 06/20/18 05/20/18 varenicline [Chantix] 1 mg PO QPM 05/21/18 06/20/18 05/20/18 acetaminophen 1,000 mg PO Q6H PRN 06/20/18 06/20/18 Unknown Past Medical History Medical History Asthma (Chronic) Only uses Ventolin inhaler with flare in seasonal allergies CAD (coronary artery disease) s/p CABG 2008, subsequent cath with one stent ~ 1 month later Chronic obstructive pulmonary disease GERD (gastroesophageal reflux disease) Hx of myocardial infarction 2008 SEEN AT [facility] ([place])- HAD CARDIAC CATH FOUND BLOCKAGES - WENT STRAIGHT FOR CABG Pelvic mass URETHRA - CURRENT ISSUE Past Family History Family History Grandmother (Maternal) Family history of diabetes mellitus Father Family history of diabetes mellitus Aunt Family history of diabetes mellitus Uncle Family history of diabetes mellitus Other No significant family history Past Surgical History Surgical History Hx of CABG (Chronic) X3 VESSELS, 2009 History of bunionectomy RIGHT AND LEFT History of cardiac cath Initially with NH in 2008--no stents, straight to bypass. 3 MONTHS AFTER BYPASS HAD EPISODE HEARTBURN - SEEN BY MD AT OFFICE - SENT TO [facility] - HAD CATH - WITH STENTING Past Anesthesia History No Hx of Anesthesia Complications and No Family Hx of Anesthesia Complications History of PONV Yes (after CABG) Motion Sickness Screening History of Motion Sickness: No Social History Smoking Status: Current every day smoker tobacco type: cigarettes Smoking cigarettes per day: 10 Do You Dip or Chew Tobacco: No Hx Alcohol Use: Yes Alcohol type: beer alcohol intake frequency: a few times a month Hx Substance Use: Yes substance use type: marijuana (occasionally) Exercise / Class Metabolic Activity III < 4 Walking/Shop/Light housework (Mild SOB with 1 FOS, denies CP with 1 FOS.) Review of Systems Pt denies any recent chest pain, shortness of breath, palpitations, fever or URI. Currently has mild productive cough, not taking any medication for it yet. Pt advised to f/u with surgeon and PCP if not improved or worsened prior to surgery. Physical Exam Vital Signs BP: 121/83 P: 81bpm SPO2: 97% RA T: 98.0 F R: 16 ENMT Mouth: no dental restorations, no chipped teeth and no loose teeth Thyromental Distance: < 3.5 Finger Breadths (2) Mallampati Class: I Neck + shortened thyromental distance; neck extension not limited Respiratory normal respiratory effort Auscultation: lungs clear to auscultation bilaterally Cardiovascular Rate/Rhythm: regular rate and regular rhythm Heart Sounds: no murmur Vessels: no carotid bruit Extremities: no edema Testing Electrocardiogram Date: 06/21/18 Findings: + NSR @ (70) Septal infarct (cited on or before 07/21/2015). Compared with EKG of 06/20/2017, no significant changes found. Chest X-Ray Date: 06/25/18 FINDINGS: No pneumothorax. No pleural effusions. The heart is normal in size. There are poststernotomy changes. Chronic interstitial thickening persists. Right apical linear and irregular densities and right apical pleural thickening remain unchanged. This favors chronic scarring. There are old, healed right- sided rib fractures. No new focal lung consolidations. No evidence for pulmonary edema. Mild emphysema. IMPRESSION: No significant change compared to the prior study. No acute process. Chronic changes as described above. Stress Test Date: 05/09/16 Type: exercise Resting EF: 55-60% Normal exercise stress echocardiogram. No echocardiographic or EKG evidence of myocardial ischemia having achieved heart rate adequate for diagnostic purposes. Presenting symptoms of chest pain were not reproduced with exercise. Resting study showed no significant valvular heart disease. Laboratory Results 06/25/18 15:51 06/25/18 15:51 Urine Color Yellow 06/25/18 Unknown Urine Appearance Clear (Clear) 06/25/18 Unknown Urine pH 7.0 (4.5-7.5) 06/25/18 Unknown Ur Specific Raymond 1.017 (1.000-1.030) 06/25/18 Unknown Urine Protein Negative (Negative) 06/25/18 Unknown Urine Glucose (UA) Negative (Negative) 06/25/18 Unknown Urine Ketones Negative (Negative) 06/25/18 Unknown Urine Nitrite Negative (Negative) 06/25/18 Unknown Ur Leukocyte Esterase Trace (Negative) H 06/25/18 Unknown Urine WBC (Auto) 1-5 /hpf (0-5) 06/25/18 Unknown Urine RBC (Auto) 0-4 /hpf (0-4) 06/25/18 Unknown U Hyaline Cast (Auto) 1-5 /lpf (0-5) 06/25/18 Unknown U Epithel Cells (Auto) 20-30 /lpf (0-5) H 06/25/18 Unknown Urine Bacteria (Auto) Negative (Negative) 06/25/18 Unknown *surgeon's office flagged re: elevated WBC count.
--- NOTE | 2018-06-25 15:16 | PAT Medication Instructions ---
Medication Instructions Date of Service June 25, 2018 Home Medications aspirin 81 mg PO QPM clopidogrel 75 mg PO QPM metoprolol succinate 25 mg PO QPM nitroglycerin [Nitrostat] 0.4 mg SUBLINGUAL UD PRN pantoprazole 20 mg PO QPM rosuvastatin 40 mg PO QPM varenicline [Chantix] 1 mg PO QPM acetaminophen 1,000 mg PO Q6H PRN ASK your prescriber and surgeon aspirin 81 mg PO QPM (TO BE CONTINUED PER CARDIO) clopidogrel 75 mg PO QPM (TO BE HELD X 5 DAYS PER CARDIO) Take morning of surgery With a small sip of water, OTHERWISE NOTHING TO EAT OR DRINK AFTER MIDNIGHT: nitroglycerin [Nitrostat] 0.4 mg SUBLINGUAL UD PRN (if needed) acetaminophen 1,000 mg PO Q6H PRN (if needed, may be taken up to four hours before surgery) Take evening before surgery metoprolol succinate 25 mg PO QPM nitroglycerin [Nitrostat] 0.4 mg SUBLINGUAL UD PRN (if needed) pantoprazole 20 mg PO QPM rosuvastatin 40 mg PO QPM varenicline [Chantix] 1 mg PO QPM acetaminophen 1,000 mg PO Q6H PRN (if needed) Other Notes If you have any questions please call us at [phone] or [phone] or [phone] or [phone]
[2018-06-25 16:25] LABS: Basophils # (auto) 0.03 K/uL (0-0.2); Basophils % (auto) 0.2 %; Eosinophils # (auto) 0.15 K/uL (0-0.5); Eosinophils % (auto) 1.2 %; Hematocrit (blood only) 42.7 % (37-47); Hemoglobin 14.7 g/dL (12.0-16.0); Immature Granulocytes # (auto) 0.11 K/uL (0.00-0.02); Immature Granulocytes % (auto) 0.9 %; Lymphocytes # (auto) 2.78 K/uL (1.2-3.4); Lymphocytes % (auto) 21.5 %; Mean Corpuscular Hgb Conc 34.4 g/dL (32-36); Mean Corpuscular Volume 96.4 fL (80-100); Mean Platelet Volume 10.5 fL (7.4-10.4); Monocytes # (auto) 0.63 K/uL (0.11-0.59); Monocytes % (auto) 4.9 %; Neutrophils # (auto) 9.24 K/uL (1.4-6.5); Neutrophils % (auto) 71.3 %; Platelet Count 352 K/uL (130-400); RDW Standard Deviation 45.9 fL (36.4-46.3); Red Blood Count 4.43 M/uL (4.2-5.4); White Blood Count 12.94 K/uL (4.8-10.8)
[2018-06-25 16:30] LABS: Appearance Urine Clear (Clear); Bacteria Urine Automated Negative (Negative); Bilirubin Urine Negative (Negative); Blood Urine Negative (Negative); Color Urine Yellow; Epithelial Cell Urine Auto 20-30 /lpf (0-5); Glucose Urine UA Negative (Negative); Ketones Urine Negative (Negative); Leukocyte Esterase Urine Trace (Negative); Nitrite Urine Negative (Negative); Protein Urine Negative (Negative); RBC Urine Automated 0-4 /hpf (0-4); Specific Gravity Urine 1.017 (1.000-1.030); Urobilinogen Urine Negative (Negative)
[2018-06-25 16:33] LABS: BUN Creatinine Ratio 16.7 (10-20); Calcium 8.9 mg/dl (8.5-10.1); Est GFR (African American) 96.6; Est GFR (Non-African American) 83.4; Potassium 4.2 mmol/L (3.5-5.1)
--- NOTE | 2018-06-25 16:55 | XRay Report ---
XR chest Pre-admission PA/Lat HISTORY: Preop. COMPARISON: Chest 05/09/2016. FINDINGS: No pneumothorax. No pleural effusions. The heart is normal in size. There are poststernotom y changes. Chronic interstitial thickening persists. Right apical linear and irregular densities and right apical pleural thickening remain unchanged. This favors chronic scarring. There are old, healed right-sided rib fractures. No new focal lung consolidations. No evidence for pulmonary edema. Mild e mphysema. IMPRESSION: No significant change compared to the prior study. No acute process. Chronic changes as described abo ve. Electronically signed by: Alvin Malave M.D. 06/25/2018 4:53 PM
[~2018-07-11 08:49] MED LIST changes: -ASPI81TA28 PO; +CEFAZOLIN - ALLERGY NOTED TO ORDERED MEDICATION SCH; +CEFAZOLIN 2000MG 2,000 MG/15 ML SYR IV SCH; -CLOP1TAB15 PO; +LR 15ML/HR IV SCH; -METO25TA3 PO; -NITR0.4S UT; -PRT/20 PO; -ROSU40TA PO
[2018-07-11] MEDS ORDERED: ONDANSETRON INJ 2 MG/ML 2 ML VIAL IV PRN ×2 (09:28→15:48)
[2018-07-11] MEDS ORDERED: ePHEDrine sulfate 50 MG/ML AMP IV PRN (09:28)
[2018-07-11] MEDS ORDERED: fentaNYL citrate 100 MCG/2 ML VIAL IV PRN (09:28)
[2018-07-11] MEDS ORDERED: HYDROmorphone INJ 1 MG/ML SYRINGE IV PRN (09:28)
[2018-07-11] MEDS ORDERED: ATROPINE SULFATE 0.1 MG/ML 10ML SYR IV PRN (09:28)
[2018-07-11] MEDS ORDERED: CEFAZOLIN 2000MG 2,000 MG/15 ML SYR IV ONE (09:46)
[2018-07-11] MEDS ORDERED: VASOPRESSIN 20 UNIT/ML VIAL ONE (09:48)
[2018-07-11] MEDS ORDERED: BACITRACIN INJ 50,000 UNIT VIAL ONE (09:49)
[2018-07-11] MEDS ORDERED: PREMARIN VAG CRM 14 APPLN/30 GM TUBE ONE ×2 (09:49→13:41)
[2018-07-11] MEDS ORDERED: LIDOCAINE/EPINEPHRINE 1% 20 ML VIAL ONE (09:49)
--- NOTE | 2018-07-11 10:53 | History & Physical Bridge Note ---
Date of Service July 11, 2018 History & Physical Bridge Note I have examined the patient, reviewed the History & Physical and in the interval since the performance of the History & Physical I have noted the following changes of clinical significance: no changes noted
[2018-07-11] MEDS ORDERED: ONDANSETRON INJ 2 MG/ML 2 ML VIAL ONE (11:23)
[2018-07-11] MEDS ORDERED: MIDAZOLAM HCL 1 MG/ML 2ML VIAL ONE (11:23)
[2018-07-11] MEDS ORDERED: fentaNYL citrate 100 MCG/2 ML VIAL ONE (11:23)
[2018-07-11] MEDS ORDERED: LARYING-O-JET KIT (LTA) ONE (11:23)
[2018-07-11] MEDS ORDERED: PROPOFOL IV EMULSION 10 MG/ML 20 ML VIAL IV ONE (11:23)
[2018-07-11] MEDS ORDERED: GLYCOPYRROLATE 0.2 MG/ML VIAL ONE (11:23)
[2018-07-11] MEDS ORDERED: ROCURONIUM BROMIDE 10 MG/ML 5 ML VIAL ONE (11:23)
[2018-07-11] MEDS ORDERED: DEXAMETHASONE SOD INJ 4 MG/ML VIAL ONE (11:23)
[2018-07-11] MEDS ORDERED: LIDOCAINE HCL 2% 2 ML VIAL/AMP(20MG/ML) INFIL ONE (11:23)
[2018-07-11] MEDS ORDERED: NEOSTIGMINE METHYLSULFATE 1 MG/ML 10ML VIAL ONE (11:23)
[2018-07-11] MEDS ORDERED: PHENYLEPHRINE 100MCG/ML 5ML SYR ONE (12:36)
--- NOTE | 2018-07-11 14:22 | Post Operative Brief Note ---
Immediate Post Op Note v1 Date of Surgery July 11, 2018 Pre & Post Diagnosis Operation Date: 07/11/18 10:20 Pre-Op Diagnosis: Large Urethral Diverticulum Post-Op Diagnosis: Large Urethral Diverticulum Procedure Operation Date: 07/11/18 10:20 Actual Procedures p Cystoscopy, Urethral Diverticulectomy with urethral repair and Anterior Repair(Not Applicable) - Omid Espitia II, DO Surgeon Omid Espitia II, DO Restaurant Service Manager MD Ki Estimated Blood Loss 10 Findings Consistent with Post-Op Diagnosis Specimens Urethral diverticulum anterior vaginal mucosa Drains Mckeon Catheter Anesthesia Type General Complications none Disposition Disposition: Recovery Room Overlapping Procedure I was present for: the critical portions of procedure. I was immediately available: during the entire case. Back up surgeon: used during listed procedure.
[2018-07-11] MEDS ORDERED: PROMETHAZINE HCL 12.5 MG in SODIUM CHLORIDE 0.9% 50 ML IV STA (14:41)
--- NOTE | 2018-07-11 14:52 | Operative Report ---
Post Operative Report Pre & Post Diagnosis Operation Date: 07/11/18 10:20 Pre-Op Diagnosis: Large Urethral Diverticulum Post-Op Diagnosis: Large Urethral Diverticulum Procedure Operation Date: 07/11/18 10:20 Actual Procedures p Cystoscopy, Urethral Diverticulectomy with repair of proximal urethra and Anterior Repair(Not Applicable) - Omid Espitia II, DO Surgeon Omid Espitia II, DO Side Laster Tack MD Ki Estimated Blood Loss 10 Findings Consistent with Post-Op Diagnosis Large diverticulum surrounding proximal urethra with infindibulum at the proximal urethra/bladder neck on left Specimens 1. Anterior vaginal mucosa 2. Urethral diverticulum Drains 20 Fr Silicon Woods Anesthesia Type General Complications none Disposition Disposition: Recovery Room Indications Large urethral diverticulum with discomfort, discharge, and UTI's. Risks and benefits discussed. Description of Procedure Patient was consented, brought to the OR, and placed in the dorsal lithotomy position under general anesthesia. She was prepped and draped in the standard sterile fashion and a time out was completed. With the time out completed, a 20 Fr Woods catheter was placed. The vaginal cavity was irrigated with saline and bacitracin fluid. After irrigation, the midurethral area of the vagina was marked and lidocaine and pitressin solution was injected for hydrodissection. A 15 blade scalpel was used to make an incision a u-shaped incision into the vaginal mucosa. The vaginal mucosa was dissected to free a space. All bleeding was controlled with cautery. The urethra was identified with the catheter in place and was gently retracted to each side. The large diverticulum sac was palpated and was found to be very proximal on the urethra. The tissues were dissected around the diverticulum. The diverticulum was entered and the contents were irrigated out. A milky discharge was irrigated. This was then irrigated with the bacitracin infused saline. The diverticulum was further manipulated and freed from surrounding attachments. Once within the diverticulum a channel was discovered heading into the urethra. The woods was removed and a scope placed. The infindibulum was discovered at the 4 oclock position approx 0.4 cm from the bladder neck. A 5 fr catheter was then manipulated into the tract. This was then grasped coming out of the diverticulum and out the opening into the vagina. The scope was then advanced and the entire bladder examined. Both UO's were identified. These were found to be well away from the bladder neck. Multiple images were collected during the scope portion. The entire bladder was assessed. No masses or lesions. The scope was slowly removed to fully assess the urethra. The opening of the tract to the diverticulum appeared epithelialized. The opening appeared to be approx 0.5 cm proximal to the sphincter. The 5 fr catheter was left to allow better assessment of this tract so it could be closed and oversewn. The scope was removed and the 20 Fr Catheter was replaced. The remainder of the diverticular sac was dissected and removed. This was sent for pathologic analysis. The entire area was assessed. Copious irrigation was utilized. The scope was placed a final time to confirm good positioning. The bladder had been found to be prolapsed which was more apparent with the removal of the large diverticular sac. The bladder was emptied after the 20 Fr woods was placed. The proximal urethra was then sutured with a 4-0 PDS suture in a running fashion running from proximal to distal to close the tract to the diverticulum. The 5 Fr Catheter was removed during closure. A 4-0 Vicryl was then used to oversew/umbricate the tissues over the closure. The woods was then filled with irrigation saline to assess for any leaking. Prior to closure this had shown leakage. After closure there was not leaking of any fluid. Throughout the entire procedure, especially at this point during closure, copious bacitracin infused irrigation was utilized. A 3-0 Vicryl was then used to approximate the periurethral tissues in a running fashion from proximal to distal. The 3-0 Vicryl was then used to bring another layer over the periurethral tissues. The 3-0 Vircyl was then used in a purse- string suture to repair the cystocele. This was completed in layers as well. The vaginal mucosa was trimmed and excess tissues removed and sent for analysis. This was then approximated with a submucosa 2-0 vicryl suture. The mucosa edges were then approximated in an interrupted fashion with a 2-0 Vicryl suture. The woods was draining well and found to be in good position. This was secured and the bladder set to drainage. Vaginal packing with premarin was placed with plans to remove within 24 hours. The patient was cleaned. The drapes removed. All counts were correct x 2 prior to full closure. The patient was aroused from anesthesia and transferred to the pacu in stable condition having tolerated the procedure well without complications. Dr. Emerson assisted during the entire procedure and was involved during the major portions including excision of the lesion/mass and repair of the urethra and closure of the tissues. I attest to the content of the Intraoperative Record and any orders documented therein. Any exceptions are noted below.
--- NOTE | 2018-07-11 15:25 | Anesthesiology Progress Note ---
Date of Service July 11, 2018 Anesthesia Post Procedure Vital Signs Vital Signs: Temp Pulse Pulse Resp BP BP Pulse Ox 07/11/18 15:06 57 L 20 142/85 H 97 07/11/18 15:05 62 21 94 07/11/18 15:01 50 L 17 148/74 H 95 07/11/18 15:00 51 L 16 94 07/11/18 14:56 52 L 18 147/86 H 97 07/11/18 14:55 53 L 18 95 07/11/18 14:51 50 L 17 136/69 94 07/11/18 14:50 51 L 22 94 07/11/18 14:49 36.7 C 51 L 18 136/69 94 07/11/18 14:46 49 L 12 139/67 95 07/11/18 14:45 55 L 14 96 07/11/18 14:40 56 L 16 139/85 95 07/11/18 14:37 52 L 12 139/68 96 07/11/18 14:35 54 L 14 95 07/11/18 14:31 58 L 14 135/57 L 99 07/11/18 14:30 58 L 16 98 07/11/18 14:26 70 20 141/70 H 99 07/11/18 14:25 52 L 14 98 07/11/18 14:22 51 L 19 128/74 100 07/11/18 14:20 36.6 C 51 L 58 L 18 128/74 99 07/11/18 14:18 71 21 99 Notes Mental Status: alert / awake / arousable and participated in evaluation Patient Amnestic to Procedure: Yes Nausea / Vomiting: improving with treatment Pain: adequately controlled Airway Patency, RR, SpO2: stable & adequate BP & HR: stable & adequate Hydration State: stable & adequate Anesthetic Complications: no major complications apparent and Pt Satisfied with anesthetic care
[2018-07-11] MEDS ORDERED: OXYCODONE HCL IR 5 MG TAB (IMMEDIATE RELEASE) PO PRN ×2 (15:48)
[2018-07-11] MEDS ORDERED: MoRPHine SULFATE 4 MG/ML 1 ML CARP\\VIAL IV PRN (15:48)
[2018-07-11] MEDS ORDERED: ACETAMINOPHEN SOL 650 MG/20.3 ML UDC PO PRN (15:48)
[2018-07-11] MEDS ORDERED: NITROGLYCERIN SL 0.4 MG/TAB TAB SL PRN (15:48)
[2018-07-11] MEDS ORDERED: BELLADONNA/OPIUM SUPP 60 MG SUPP PR PRN (15:48)
[2018-07-11] MEDS ORDERED: ACETAMINOPHEN 325 MG TAB PO PRN (15:48)
[2018-07-11] MEDS ORDERED: ACETAMINOPHEN 500 MG TAB PO PRN (15:48)
[2018-07-11 16:16] LABS: Basophils # (auto) 0.02 K/uL (0-0.2); Basophils % (auto) 0.1 %; Eosinophils # (auto) 0.01 K/uL (0-0.5); Eosinophils % (auto) 0.1 %; Hematocrit (blood only) 41.4 % (37-47); Hemoglobin 13.8 g/dL (12.0-16.0); Immature Granulocytes # (auto) 0.07 K/uL (0.00-0.02); Immature Granulocytes % (auto) 0.5 %; Lymphocytes # (auto) 1.06 K/uL (1.2-3.4); Lymphocytes % (auto) 7.4 %; Mean Corpuscular Hgb Conc 33.3 g/dL (32-36); Mean Corpuscular Volume 98.3 fL (80-100); Mean Platelet Volume 10.1 fL (7.4-10.4); Monocytes # (auto) 0.21 K/uL (0.11-0.59); Monocytes % (auto) 1.5 %; Neutrophils # (auto) 12.97 K/uL (1.4-6.5); Neutrophils % (auto) 90.4 %; Platelet Count 296 K/uL (130-400); RDW Coefficient of Variation 13.2 % (11.5-14.5); RDW Standard Deviation 47.1 fL (36.4-46.3); Red Blood Count 4.21 M/uL (4.2-5.4); White Blood Count 14.34 K/uL (4.8-10.8)
[2018-07-11] MEDS: LACTATED RINGER'S 1,000 ML IV SCH (16:16)
[2018-07-11 16:31] LABS: BUN Creatinine Ratio 14.7 (10-20); Calcium 9.1 mg/dl (8.5-10.1); Creatinine Clr Calc Pharmacy 88.8 ml/min; Est GFR (African American) 91.3; Est GFR (Non-African American) 78.8; Potassium 4.6 mmol/L (3.5-5.1)
[2018-07-11] MEDS: MoRPHine SULFATE 2 MG/ML CARP IV PRN ×2 (18:04→21:15)
[2018-07-11] MEDS ORDERED: VARENICLINE 1 MG TAB PO SCH (21:00)
[2018-07-11] MEDS ORDERED: PANTOprazole 40 MG TAB PO SCH (21:00)
[2018-07-11] MEDS ORDERED: ROSUVASTATIN CALCIUM 20 MG TAB PO SCH (21:00)
[2018-07-11] MEDS ORDERED: ASPIRIN 81 MG ECTAB PO SCH (21:00)
[2018-07-11] MEDS ORDERED: METOPROLOL SUCC 25MG EXT REL TAB PO SCH (21:00)
[2018-07-12] MEDS: LACTATED RINGER'S 1,000 ML IV SCH ×2 (00:04→08:36)
[2018-07-12] MEDS: MoRPHine SULFATE 2 MG/ML CARP IV PRN ×2 (00:38→03:50)
--- NOTE | 2018-07-12 07:29 | Anesthesiology Progress Note ---
Date of Service July 12, 2018 Anesthesia Post Procedure Vital Signs Vital Signs: Temp Pulse Pulse Pulse Resp BP BP 07/12/18 03:48 36.6 C 69 17 122/72 07/11/18 23:06 36.9 C 73 17 114/71 07/11/18 20:58 57 L 132/74 07/11/18 18:18 36.9 C 84 20 118/74 07/11/18 17:18 36.9 C 68 20 114/78 07/11/18 16:18 36.9 C 75 20 127/80 07/11/18 16:10 36.3 C L 70 16 152/75 H 07/11/18 15:40 36.9 C 77 16 145/78 H 07/11/18 15:31 54 L 15 140/72 07/11/18 15:30 58 L 13 07/11/18 15:26 71 22 158/101 H 07/11/18 15:25 65 17 07/11/18 15:21 58 L 14 139/78 07/11/18 15:20 55 L 15 07/11/18 15:16 58 L 14 135/81 07/11/18 15:15 53 L 14 07/11/18 15:11 52 L 17 154/80 H 07/11/18 15:10 53 L 19 07/11/18 15:07 58 L 17 07/11/18 15:06 57 L 20 142/85 H 07/11/18 15:05 62 21 07/11/18 15:01 50 L 17 148/74 H 07/11/18 15:00 51 L 16 07/11/18 14:56 52 L 18 147/86 H 07/11/18 14:55 53 L 18 07/11/18 14:51 50 L 17 136/69 07/11/18 14:50 51 L 22 07/11/18 14:49 36.7 C 51 L 18 136/69 07/11/18 14:46 49 L 12 139/67 07/11/18 14:45 55 L 14 07/11/18 14:40 56 L 16 139/85 07/11/18 14:37 52 L 12 139/68 07/11/18 14:35 54 L 14 07/11/18 14:31 58 L 14 135/57 L 07/11/18 14:30 58 L 16 07/11/18 14:26 70 20 141/70 H 07/11/18 14:25 52 L 14 07/11/18 14:22 51 L 19 128/74 07/11/18 14:20 36.6 C 51 L 58 L 18 128/74 07/11/18 14:18 71 21 Pulse Ox 07/12/18 03:48 91 07/11/18 23:06 93 07/11/18 20:58 07/11/18 18:18 94 07/11/18 17:18 93 07/11/18 16:18 96 07/11/18 16:10 97 07/11/18 15:40 94 07/11/18 15:31 95 07/11/18 15:30 94 07/11/18 15:26 92 07/11/18 15:25 93 07/11/18 15:21 95 07/11/18 15:20 94 07/11/18 15:16 95 07/11/18 15:15 93 07/11/18 15:11 95 07/11/18 15:10 94 07/11/18 15:07 96 07/11/18 15:06 97 07/11/18 15:05 94 07/11/18 15:01 95 07/11/18 15:00 94 07/11/18 14:56 97 07/11/18 14:55 95 07/11/18 14:51 94 07/11/18 14:50 94 07/11/18 14:49 94 07/11/18 14:46 95 07/11/18 14:45 96 07/11/18 14:40 95 07/11/18 14:37 96 07/11/18 14:35 95 07/11/18 14:31 99 07/11/18 14:30 98 07/11/18 14:26 99 07/11/18 14:25 98 07/11/18 14:22 100 07/11/18 14:20 99 07/11/18 14:18 99 Notes Mental Status: alert / awake / arousable and participated in evaluation Nausea / Vomiting: adequately controlled Pain: adequately controlled Airway Patency, RR, SpO2: stable & adequate BP & HR: stable & adequate Hydration State: stable & adequate
[2018-07-12 08:02] LABS: Basophils # (auto) 0.01 K/uL (0-0.2); Basophils % (auto) 0.1 %; Hematocrit (blood only) 33.9 % (37-47); Hemoglobin 11.7 g/dL (12.0-16.0); Immature Granulocytes # (auto) 0.08 K/uL (0.00-0.02); Immature Granulocytes % (auto) 0.5 %; Lymphocytes % (auto) 14.8 %; Mean Corpuscular Hgb Conc 34.5 g/dL (32-36); Mean Platelet Volume 10.2 fL (7.4-10.4); Monocytes # (auto) 0.93 K/uL (0.11-0.59); Monocytes % (auto) 5.7 %; Neutrophils # (auto) 12.78 K/uL (1.4-6.5); Neutrophils % (auto) 78.9 %; Platelet Count 294 K/uL (130-400); RDW Coefficient of Variation 13.2 % (11.5-14.5); RDW Standard Deviation 45.9 fL (36.4-46.3); Red Blood Count 3.53 M/uL (4.2-5.4)
--- NOTE | 2018-07-12 08:36 | Urology Progress Note ---
Date of Service July 12, 2018 Assessment & Plan (1) Urethral diverticulum: 48yo F s/p POD #1 cystoscopy, Urethral Diverticulectomy with repair of proximal urethra and Anterior Repair Progressing as expected. Encouraged to ambulate, use of IS. She is hungry, diet advanced to regular food. Okay to discharge home after lunch as long as she continues to progress, tolerates regular diet.. - Remove vaginal packing just prior to discharge (there are TWO separate pieces). - Maintain catheter, convert to leg bag. Discharge instructions reviewed with pt, she verbalizes good understanding. Followup with Dr. Espitia arranged Subjective 48yo F POD #1 s/p cystoscopy, Urethral Diverticulectomy with repair of proximal urethra and Anterior Repair. Pt progressing as expected. Did not sleep well last night, relates to pain and environment. Tolerating clears without n/v. Some flatus, no BM. Pt taking IV pain medication only - would like to wait to try PO once having regular food, reasonable. Having some vaginal itching/burning. VS stable, afebrile. labs reviewed - stable. Urine draining clear yellow. Review of Systems Review of Systems: All systems reviewed & are unremarkable except as noted in HPI & below Physical Exam Physical Exam: A&OX3 RRR Abd soft, nontender. woods - draining clear yellow. Vaginal packing intact. No bleeding. Results & Data Vital Signs (Past 12 Hours) Vital Signs Temp Pulse Resp BP Pulse Ox 07/12/18 07:47 36.6 C 60 18 123/76 94 07/12/18 03:48 36.6 C 69 17 122/72 91 07/11/18 23:06 36.9 C 73 17 114/71 93 07/11/18 20:58 57 L 132/74 Laboratory Results Laboratory Results - last 48 hr 07/11/18 07/11/18 07/11/18 09:28 16:03 16:03 WBC 14.34 H RBC 4.21 Hgb 13.8 Hct 41.4 MCV 98.3 MCH 32.8 MCHC 33.3 RDW Std Deviation 47.1 H RDW Coeff of Zenaida 13.2 Plt Count 296 MPV 10.1 Immature Gran % (Auto) 0.5 Neut % (Auto) 90.4 Lymph % (Auto) 7.4 [place] % (Auto) 1.5 Eos % (Auto) 0.1 Baso % (Auto) 0.1 Immature Gran # (Auto) 0.07 H Neut # (Auto) 12.97 H Lymph # (Auto) 1.06 L [place] # (Auto) 0.21 Eos # (Auto) 0.01 Baso # (Auto) 0.02 Sodium 142 Potassium 4.6 Chloride 111 H Carbon Dioxide 24 Anion Gap 7.0 BUN 13 Creatinine 0.87 Est Cr Clr Drug Dosing 88.8 Est GFR ( Amer) 91.3 Est GFR (Non-Af Amer) 78.8 BUN/Creatinine Ratio 14.7 Glucose 87 Calcium 9.1 Blood Type A Negative Antibody Screen NEGATIVE 07/12/18 07/12/18 07:49 07:49 WBC 16.20 H RBC 3.53 L Hgb 11.7 L Hct 33.9 L MCV 96.0 MCH 33.1 MCHC 34.5 RDW Std Deviation 45.9 RDW Coeff of Zenaida 13.2 Plt Count 294 MPV 10.2 Immature Gran % (Auto) 0.5 Neut % (Auto) 78.9 Lymph % (Auto) 14.8 [place] % (Auto) 5.7 Eos % (Auto) 0.0 Baso % (Auto) 0.1 Immature Gran # (Auto) 0.08 H Neut # (Auto) 12.78 H Lymph # (Auto) 2.40 [place] # (Auto) 0.93 H Eos # (Auto) 0.00 Baso # (Auto) 0.01 Sodium 141 Potassium 3.7 D Chloride 111 H Carbon Dioxide 22 Anion Gap 8.0 BUN 10 Creatinine 0.68 Est Cr Clr Drug Dosing 113.7 Est GFR ( Amer) 119.9 Est GFR (Non-Af Amer) 103.4 BUN/Creatinine Ratio 14.2 Glucose 90 Calcium 8.8 Blood Type Antibody Screen
[2018-07-12 08:42] LABS: BUN Creatinine Ratio 14.2 (10-20); Calcium 8.8 mg/dl (8.5-10.1); Creatinine Clr Calc Pharmacy 113.7 ml/min; Est GFR (African American) 119.9; Est GFR (Non-African American) 103.4; Potassium 3.7 mmol/L (3.5-5.1)
--- NOTE | 2018-07-17 22:07 | Discharge Summary ---
Date of Service July 17, 2018 Admission HPI Per Admitting Provider See H&P Admission Exam Per Admitting Provider See H&P Principal Diagnosis Urethral diverticulum Discharge Exam ENMT Mouth: + TMJ clicking and + dentition abnormality; no TMJ abnormality, no dental restorations, no chipped teeth and no loose teeth Mallampati Class: II Neck normal visual inspection and + shortened thyromental distance; neck extension not limited Respiratory normal respiratory effort Auscultation: lungs clear to auscultation bilaterally Cardiovascular Rate/Rhythm: regular rate and regular rhythm Heart Sounds: no murmur Vessels: no carotid bruit Extremities: no edema Musculoskeletal Spine: normal cervical ROM and no pain with cervical ROM Neurologic moves all extremities Discharge Data Allergies Allergy/AdvReac Type Severity Reaction Status Date / Time Penicillins Allergy Intermediate HIVES Verified 07/11/18 09:30 latex AdvReac Mild BREAKS OUT Verified 07/11/18 09:30 Procedures Performed Operation Date: 07/11/18 10:20 Actual Procedures p Urethral Diverticulectomy with Anterior Repair(Not Applicable) - German Emerson MD s Cystoscopy(Not Applicable) - Omid Espitia II, DO Hospital Course (1) Urethral diverticulum: 48yo F s/p POD #1 cystoscopy, Urethral Diverticulectomy with repair of proximal urethra and Anterior Repair Progressing as expected. Encouraged to ambulate, use of IS. She is hungry, diet advanced to regular food. Okay to discharge home after lunch as long as she continues to progress, tolerates regular diet.. - Remove vaginal packing just prior to discharge (there are TWO separate pieces). - Maintain catheter, convert to leg bag. Discharge instructions reviewed with pt, she verbalizes good understanding. Followup with Dr. Espitia arranged Total Time Total Time Spent Total Time Spent (In Minutes): 15 Discharge Plan Discharge Items Patient Disposition: Home - Self-Care Reason For Visit: Urethral Mass Discharge Diagnosis: urethral mass Discharge Goals: Improve disease control and Prevent disease Activity: Per 'Additional Instructions' section Activity Comment: walking and stairs in your home are okay Lifting: No more than 25 pounds Bathing Comment: Okay to shower, no tub baths. No hot tubs. Sexual Activity: Wait until after follow-up appointment Exercise/Sports: Rest today and Wait until after follow-up appointment Driving/Machine Use: Resume 1 day after discharge Driving/Machine Use Comment: Please do not drive while taking prescription pain medication. Non-emergency contact: Urologist Call non-emergency contact if: your pain is not controlled, your temperature is above 101, your wound has increased redness and your wound has increased drainage Follow-up/Referrals: Naya Tiwari MD [Primary Care Provider] - Omid Espitia II, DO [Physician] - 07/25/18 11:10 am Diet: Regular Addtl Provider Instructions: Please take all medications as prescribed and keep all follow-ups as scheduled. Please call our office at [phone] with any questions, concerns or need to reschedule appointments for any reason. We are happy to assist you Some vaginal spotting is to be expected as you heal. Medications: Sulfamethoxazole-trimethoprim (Bactrim DS) is your antibiotic, please take every 12 hours for 7 days. Colace is your stool softener, please take twice a day for the first two weeks, then as needd. Pyridium is for burning sensation around catheter, this can turn your urine orange. Percocet is for pain, okay to take as needed up to 3 times a day[address] not drive or mix with alcohol. Plavix and aspirin - you can restart this in 2-3 days unless otherwise instructed by your ordering physician. Ciprofloxacin (incorrectly entered as Clindamycin in home meds)- discontinue. Activity: We recommend having someone with you for the first few days after surgery to help care for you. For the first 2 weeks after surgery, we would like you to get up and walk around your house. However, we recommend limit physical activity that would increase your heart rate. This will allow your body to rest and heal. Take naps if you feel tired. Don't lift anything heavier than 25 pounds, mow the law or ride a bicycle until your follow-up appointment. Please avoid long car rides. Home Care: Unless directed otherwise, drink 6 to 8 glasses of water a day (enough to keep your urine light colored). This will also help keep a healthy flow of urine. We recommend using a stool softener for the first two weeks to avoid constipation. - Vaginal care - Okay to use spray bottle with saline/ distilled water while showering around perineal area but you do not need to do this. Recommend showering as normal, cleanse with mild soap around catheter (see woods care instruction). Woods Catheter care: Keep the catheter well secured with either a leg back or leg strap with large bag. Empty your bag when it's about half full. You may notice some blood in the bag. This is normal after surgery and while the catheter is in place. Use mild soap (such as Dove or Dial) and water to wash the catheter and the head of your penis daily, or more frequently if needed. Return to your normal diet, we encourage good protein intake to promote healing. You may shower as normal. Please avoid tub baths or soaking. Wearing sweat pants while you have the catheter is recommended, they will be more comfortable. Follow-up Appt with Dr. Espitia in 2 weeks. This will be arranged by our office. Your final pathology report will be discussed at your physician follow-up appointment. Call [facility] [place] [facility] [place] [phone] right away if you have any of the following: Chest pain or trouble breathing (call 561 or go to the hospital) Fever of 101F or higher, uncontrolled vomiting Heavy bleeding, clots, or bright red blood from the catheter Catheter that falls out or stops draining Foul-smelling discharge from your catheter Redness, swelling, warmth, or increased pain at your incision site Drainage, pus, or bleeding from your incision Prescriptions: New docusate sodium [Colace] 100 mg capsule 100 mg PO BID Qty: 60 RF: 0 phenazopyridine [Pyridium] 200 mg tablet 200 mg PO TID PRN (Reason: pain) Qty: 20 RF: 0 sulfamethoxazole-trimethoprim [Bactrim DS] 800-160 mg tablet 1 tab PO BID 7 Days Qty: 14 RF: 0 oxycodone-acetaminophen [Percocet] 5-325 mg tablet 1 tab PO TID PRN (Reason: pain) Qty: 14 RF: 0 Continued aspirin 81 mg Tablet,Delayed Release (Dr/Ec) 81 mg PO QPM RF: 0 pantoprazole 20 mg Tablet,Delayed Release (Dr/Ec) 20 mg PO QPM RF: 0 nitroglycerin [Nitrostat] 0.4 mg Tablet, Sublingual 0.4 mg Sublingual UD PRN (Reason: Chest Pain) RF: 0 metoprolol succinate 25 mg Tablet Extended Release 24 Hr 25 mg PO QPM RF: 0 rosuvastatin 40 mg Tablet 40 mg PO QPM RF: 0 varenicline 1 mg tablet 1 mg PO QPM RF: 0 acetaminophen 500 mg Tablet 1,000 mg PO Q6H PRN (Reason: Pain) RF: 0 clopidogrel 75 mg Tablet 75 mg PO QPM Qty: 0 RF: 0 Discontinued clindamycin HCl 500 mg tablet 500 mg PO BID RF: 0 Stand-Alone Forms: [facility] [employer], [facility] [employer]/Other Patient Handouts: Catheter Bag Urinary Empty Clean, Catheter Indwelling Urinary Dc, Leg Bag Care Dc Discharge Orders: Discharge Order (Routine); Ordered 07/12/18 Ordered By: Tammie Lockwood Admission Data Admit Date/Time: 07/11/18 14:31 Attending Provider: Omid Espitia II Admit Provider: Omid Espitia II Primary Care Provider: Naya Tiwari Other Providers: German Emerson I. Service: Surgical Services Other Interventions: Discharge Summary Assessment (RN) Last Done: 07/12/18 13:02 DC Date/Time DO NOT enter until pt leaves facility: 07/12/18 14:39
== END 2018-07-12 14:39 | disposition home or self-care (01) ==
LOC: ASU 08:49 → 3W 08:49